=== PATIENT | male | born 1965 | race Asian ===

== ENCOUNTER 2018-12-17 22:26 | Inpatient (IN) | payer OTHER | END 2018-12-24 12:07 | disposition still patient (30) | LOC: SUR 3N 23:59 → ER 22:26 → SUR 3N 12-18 01:22 | PROC: 0DU907Z Supplement Duodenum with Autologous Tissue Substitute, Open Approach (ICD-10-PCS; principal; 2018-12-17 00:26) | DX: K26.1 Acute duodenal ulcer with perforation (principal); K65.0 Generalized (acute) peritonitis; N17.9 Acute kidney failure, unspecified; I10 Essential (primary) hypertension; E78.5 Hyperlipidemia, unspecified; E11.9 Type 2 diabetes mellitus without complications ==